=== PATIENT | female | born 1995 | race American Indian/Alaskan Native ===

== ENCOUNTER 2019-12-12 13:26 | Outpatient (CLI) | payer MEDICAID ==
[2019-12-12 14:17] VITALS: BP 124/73
== END 2019-12-12 16:37 | disposition home or self-care (01) ==
LOC: TRG 13:26 → APU 13:51 → TRG 16:37
PROVIDERS: ATTEND Obstetrics & Gynecology
DX: Z34.83 Encounter for supervision of other normal pregnancy, third trimester (principal); Z3A.39 39 weeks gestation of pregnancy
CPT/HCPCS: 59025

== ENCOUNTER 2019-12-20 07:31 | Inpatient (IN) | payer MEDICAID ==
[2019-12-20] MEDS ORDERED: MORPHINE 10 MG/1 ML INJ IV ONE (10:29)
[2019-12-20] MEDS ORDERED: MORPHINE 4 MG/1 ML INJ IV ONE (11:00)
[2019-12-20] MEDS ORDERED: LACTATED RINGERS 1,000 ML ONE (11:14)
[2019-12-20] MEDS ORDERED: ePHEDrine SULFATE 50 MG/1 ML INJ IV PRN (13:43)
[2019-12-20] MEDS ORDERED: TERBUTALINE 1 MG/1 ML INJ SUB-Q PRN (13:43)
[2019-12-20] MEDS ORDERED: MINERAL OIL 30 ML ORAL LIQD PO PRN (13:43)
[2019-12-20] MEDS ORDERED: TERBUTALINE 1 MG/1 ML INJ IVP PRN (13:43)
[2019-12-20] MEDS ORDERED: BUTORPHANOL 2 MG/1 ML INJ IV PRN (13:43)
[2019-12-20] MEDS ORDERED: LIDOCAINE (2%) 20 MG/1 ML VIAL 20 ML MDV INFILTRATI ONE (13:43)
[2019-12-20] MEDS ORDERED: ONDANSETRON 4 MG/2 ML INJ IV PRN ×2 (13:43→20:51)
[2019-12-20] MEDS ORDERED: OXYTOCIN DRIP 30 UNITS/500 ML BAG IV SCH (14:00)
[2019-12-20] MEDS ORDERED: LACTATED RINGERS 1,000 ML IV SCH (14:00)
[2019-12-20] MEDS ORDERED: OXYTOCIN 20 UNIT/1000ML DRIP 20 UNITS/1,000 ML BAG IV SCH (14:00)
[2019-12-20 15:06] LABS: Hematocrit 31.5 % (30.3-42.9); Hemoglobin 10.5 gm/dl (10.1-14.3); Mean Corpuscular HGB Conc 33 % (30-34); Mean Corpuscular Volume 82 fl (79-97); Platelet Count 269 K/mm3 (140-440); Red Blood Count 3.85 M/mm3 (3.65-5.03); Red Cell Distribution Width 14.3 % (13.2-15.2)
--- NOTE | 2019-12-20 18:21 | History and Physical Report ---
History of Present Illness Date of examination: 12/20/19 Date of admission: 12/20/19 13:52 Chief complaint: I am having contractions History of present illness: Patient is a 24-year-old 3 para 2 who presents to labor and delivery with contractions since 1 AM this morning. Her EDC was 12/19/2019 which makes her 40 weeks and 1 day. She has had an uncomplicated course she is GBS negative. She transferred and to just few months of care at approximately 24 weeks gestation and has been getting regular care since that time. Past History - Obstetrical History Expected Date of Delivery: 12/19/19 Actual Gestation: 40 Week(s) 1 Day(s) : 3 Para: 2 Number of Living Children: 2 Medications and Allergies Allergies Allergy/AdvReac Type Severity Reaction Status Date / Time Penicillins Allergy Rash Verified 12/08/19 19:40 Active Meds: Active Medications Butorphanol Tartrate (Stadol) 2 mg IV Q2H PRN PRN Reason: Pain , Severe (7-10) Ephedrine Sulfate (Ephedrine Sulfate) 10 mg IV Q2M PRN PRN Reason: Hypotension Oxytocin/Sodium Chloride (Pitocin/Ns 20 Unit/1000ml Drip) 20 units in 1,000 mls @ 125 mls/hr IV DIRECT JUAN PABLO Oxytocin/Sodium Chloride (Pitocin/Ns 30 Unit/500ml) 30 units in 500 mls @ 4 mls/hr IV TITR JUAN PABLO; Protocol Last Admin: 12/20/19 16:59 Dose: 4 ml/hr, 4 mls/hr Documented by: Lactated Ringer's (Lactated Ringers) 1,000 mls @ 125 mls/hr IV DIRECT JUAN PABLO Mineral Oil (Mineral Oil) 30 ml PO QHS PRN PRN Reason: Constipation Ondansetron HCl (Zofran) 4 mg IV Q8H PRN PRN Reason: Nausea And Vomiting Last Admin: 12/20/19 14:32 Dose: 4 mg Documented by: Terbutaline Sulfate (Brethine) 0.25 mg SUB-Q ONCE PRN PRN Reason: Hyperstimulation/Hypertonicity Terbutaline Sulfate (Brethine) 0.25 mg IVP ONCE PRN PRN Reason: Hyperstimulation/Hypertonicity Review of Systems All systems: negative Genitourinary: pelvic pain, contractions - Vital Signs Vital signs: Vital Signs Pulse BP 72 131/64 12/20/19 07:53 12/20/19 07:53 Temp Pulse Resp BP Pulse Ox 98.6 F 82 20 106/63 100 12/20/19 08:00 12/20/19 18:11 12/20/19 08:00 12/20/19 13:25 12/20/19 18:11 - Physical Exam Breasts: Cardiovascular: Regular rate, Normal S1, Normal S2 Lungs: Positive: Clear to auscultation, Normal air movement Abdomen: Positive: normal appearance, soft, normal bowel sounds. Negative: distention, tenderness Genitourinary (Female): Positive: normal external genitalia, normal perenium Vulva: both: normal Vagina: Positive: normal moisture. Negative: discharge Cervix: Negative: lesion, discharge Uterus: Positive: normal size, normal contour Adnexa: both: normal Anus/Rectum: Positive: normal perianal skin, heme negative. Negative: rectal mass, hemorrhoids Extremities: Deep Tendon Reflex Grade: Normal +2 - Obstetrical Cervical Dilatation: 3 Cervical Effacement Percentage: 80 station: -1 Uterine Contraction Pattern: Regular Uterine Contraction Intensity: Moderate Results Result Diagrams: 12/20/19 14:45 Abnormal lab results 12/20/19 Range/Units 14:45 MCH 27 L (28-32) pg All other labs normal. Assessment and Plan IUP at 40.1 weeks in labor. Admit to L&D. AROM.. Augment with pitocin. anticipat e
--- NOTE | 2019-12-20 19:38 | Procedure Note ---
OB Delivery Note - Delivery Date of Delivery: 12/20/19 Surgeon: CATARINO CLARK Estimated blood loss: 200cc - Vaginal Delivery presentation: vertex Delivery position: OA Intrapartum events: meconium Delivery induction: none Delivery monitor: external FHT, external uterine Route of delivery: Delivery placenta: spontaneous Delivery cord: 3 umbilical vessels Episiotomy: none Delivery laceration: none Anesthesia: none Delivery comments: Viable female delivered over intact perineum without nuchal cord. Cord was clamped and cut and patient was handed to the waiting NICU personnel due to meconium. The placenta was delivered spontaneously and intact with a three- vessel cord. There were no lacerations needing repair. The weight of the inf ant was 7 pounds 10 ounces with Apgars of 8 and 9. Excellent hemostasis. Patient tolerated procedure well. - Infant A at 1 minute: 8 at 5 minutes: 9 Gender: Female (7 pounds 10 ounces)
[2019-12-20] MEDS ORDERED: PROMETHAZINE 25 MG TAB PO PRN (20:51)
[2019-12-20] MEDS ORDERED: ACETAMINOPHEN 325 MG TAB PO PRN (20:51)
[2019-12-20] MEDS ORDERED: diphenhydrAMINE 25 MG CAP PO PRN (20:51)
[2019-12-20] MEDS ORDERED: MAGNESIUM HYDROXIDE (MOM) ORAL LIQD UDC PO PRN (20:51)
[2019-12-20] MEDS ORDERED: WITCH HAZEL/ GLYCERIN PAD TP PRN (20:51)
[2019-12-20] MEDS ORDERED: PROMETHAZINE 25 MG RECT SUPP PR PRN (20:51)
[2019-12-20] MEDS ORDERED: LANOLIN/ZINC/DIMETHICONE (LANSINOH) 7 GM TP PRN (20:51)
[2019-12-20] MEDS: HYDROcodone/ACETAMINOPHEN 5-325 MG TAB PO PRN (21:06)
[2019-12-21] MEDS: IBUPROFEN 600 MG TAB PO SCH ×4 (00:12→21:44)
[2019-12-21] MEDS: HYDROcodone/ACETAMINOPHEN 5-325 MG TAB PO PRN (05:35)
[2019-12-21 08:15] LABS: Hematocrit 26.6 % (30.3-42.9); Hemoglobin 9.1 gm/dl (10.1-14.3)
[2019-12-21] MEDS: DOCUSATE SODIUM 100 MG CAP PO SCH ×2 (10:01→21:44)
[2019-12-21 15:19] LABS: Amphetamine Screen,Urine PRESUMPTIVE NEGATIVE; Benzodiazepines Screen,Urine PRESUMPTIVE NEGATIVE; Cannabinoid Screen,Urine PRESUMPTIVE POSITIVE; Cocaine Screen,Urine PRESUMPTIVE NEGATIVE; Methadone Screen,Urine PRESUMPTIVE NEGATIVE; Opiate Screen,Urine PRESUMPTIVE NEGATIVE
--- NOTE | 2019-12-22 09:45 | Progress Note ---
Assessment and Plan PPD 2 s/p . Doing well. Plan for discharge later today. Subjective - Subjective Date of service: 12/22/19 Interval history: PPD 2 s/p . Doing well. Pt without complaints. Pt to be discharged today after consult with case management for pos thc in urine sample. Patient reports: appetite normal, voiding normally, pain well controlled, ambulating normally : doing well Objective - Vital Signs Latest vital signs: Vital Signs Temp Pulse Resp BP BP Pulse Ox 12/22/19 07:48 98.3 F 70 18 116/57 97 12/21/19 23:53 98.6 F 71 18 126/67 97 12/21/19 16:50 98.2 F 86 20 103/66 12/21/19 12:58 98.0 F 20 114/52 Intake and Output 12/21/19 12/22/19 12/22/19 22:59 06:59 14:59 Intake Total 480 Output Total 300 Balance 180 Intake: Oral 480 Output: Urine 300 Void 300 Other: Total, Intake Amount 120 Total, Output Amount 300 Voiding Method Toilet # Voids Void 2 - Exam Breasts: Present: deferred Cardiovascular: Present: Regular rate, Normal S1, Normal S2 Lungs: Present: Clear to auscultation, Normal air movement Abdomen: Present: normal appearance, soft, normal bowel sounds Uterus: Present: normal, firm Extremities: Present: normal
--- NOTE | 2019-12-22 09:52 | Discharge Summary ---
Providers - Providers Date of Admission: 12/20/19 13:52 Date of discharge: 12/22/19 Attending physician: CATARINO CLARK Primary care physician: CATARINO CLARK Hospitalization Reason for admission: active labor Delivery: Other procedures: none complications: none Discharge diagnosis: IUP at term delivered baby: female Hospital course: unremarkable Condition at discharge: Good Disposition: DC-01 TO HOME OR SELFCARE Plan - Provider Discharge Summary Activity: routine, no sex for 6 weeks, no heavy lifting 4 weeks, no strenuous exercise Diet: routine Instructions: routine Additional instructions: [] Smoking cessation referral if applicable(refer to patient education folder for contact #) [] Refer to [facility] Booklet Call your doctor immediately for: * Fever > 100.5 * Heavy vaginal bleeding ( >1 pad per hour) * Severe persistent headache * Shortness of breath * Reddened, hot, painful area to leg or breast * Drainage or odor from incision. * Keep incision clean and dry at all times and follow doctor's instructions regarding bathing/showering - Follow up plan Follow up: CATARINO CLARK MD [Primary Care Provider] - 6 Weeks
[2019-12-22] MEDS: DOCUSATE SODIUM 100 MG CAP PO SCH (11:17)
[2019-12-22] MEDS: IBUPROFEN 600 MG TAB PO SCH (11:18)
[2019-12-22 15:25] VITALS: BP 127/71
== END 2019-12-22 15:30 | disposition home or self-care (01) | DRG 775 ==
LOC: TRG 07:31 → APU 07:31 → TRG 13:51 → LD 13:52 → OB 22:00
PROVIDERS: ADMIT Obstetrics & Gynecology; ATTEND Obstetrics & Gynecology
PROC: 10E0XZZ Delivery of Products of Conception, External Approach (ICD-10-PCS; principal; 2019-12-20)
PROC: 10907ZC Drainage of Amniotic Fluid, Therapeutic from Products of Conception, Via Natural or Artificial Opening (ICD-10-PCS; 2019-12-20)
DX: O77.0 Labor and delivery complicated by meconium in amniotic fluid (principal); Z3A.40 40 weeks gestation of pregnancy; Z37.0 Single live birth; Z88.0 Allergy status to penicillin
CPT/HCPCS: 36415; 80307; 85014; 85018; 85027; 86592; 86850; 86900; 86901; G0378; J0595; J2270; J2405; J2590; J7120